=== PATIENT | male | born 1955 | race Caucasian/White ===

== ENCOUNTER 2020-06-27 15:06 | Emergency (ER) | payer MEDICARE, OTHER ==
[~2020-06-27] VITALS: Ht 170.2 cm; Wt 105.2 kg
[~2020-06-27 15:06] MED LIST: ALLEGRA ALLERG180 MG PO; AMITRIPTYLINE H25 MG PO; ASPIRIN EC81 MG PO; CITALOPRAM HBR40 MG PO; CLARITIN10 MG PO; CLINORIL200 MG PO; CORTISPORIN EY OU; CYCLOBENZAPRINE10 MG PO; DIAZEPAM5 MG PO; DOCUSATE SODIU100 MG PO; FEXOFENADINE H180 MG PO; FLOMAX0.4 MG PO; GABAPENTIN600 MG PO; HYDROCODON-ACE1 EA11 PO; HYDROCODON-ACE1 EAC8 PO; LISINOPRIL20 MG PO; METHOCARBAMOL500 MG PO; NEURONTIN300 MG PO; OMEPRAZOLE20 MG PO; PRINIVIL5 MG PO; SENNA LAX8.6 MG PO; TAMSULOSIN HCL0.4 MG PO; TRAMADOL HCL50 MG PO; VITAMIN D50000 UNIT PO; ZOCOR20 MG PO
--- OUTSIDE RECORDS SUMMARY | 2020-06-27 15:08 | XMS ---
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 Calvin has no Care Guidelines for this patient. [place] VISIT COUNT (12 MO.) 1 [facility] T[facility] 2 NOTE: Visits indicate total known visits. ED/[facility] [place] VISIT TRACKING (12 MO.) [facility]2020 15[facility] COMPLAINT: - L SHOULDER PAIN, NECK PAIN 06/26/2020 22:53 [facility]: Emergency DIAGNOSES: - Shoulder Pain - back, lt shoulder and arm pain - Unspecified injury of muscle(s) and tendon(s) of the rotator cuff of left shoulder, initial encounter - Neck Pain INPATIENT VISIT TRACKING (12 MO.) No inpatient visits to display in this time frame [email or web address]
== END 2020-06-27 17:31 | disposition home or self-care (01) ==
LOC: ED 15:06
DX: M25.512 Pain in left shoulder (principal); M54.2 Cervicalgia; I10 Essential (primary) hypertension; Z87.891 Personal history of nicotine dependence; Z79.899 Other long term (current) drug therapy
CPT/HCPCS: 73030; 96372; 99283-25; A9270; J1885